=== PATIENT | male | born 1950 | race Caucasian/White ===

== ENCOUNTER 2020-11-07 07:37 | Day surgery (SDC) | payer MEDICARE ==
[2020-11-05 09:41] LABS: MICROSCOPIC NOT IND
[2020-11-05 09:51] LABS: ALANINE AMINOTRANSFERASE 21 U/L (12-78); ALBUMIN 3.7 g/dL (3.4-5.0); ALKALINE PHOSPHATASE 67 U/L (45-117); BILIRUBIN,TOTAL 0.7 mg/dL (0.2-1.0); CALCIUM 9.1 mg/dL (8.5-10.1); CREATININE 0.88 mg/dL (0.7-1.3); TOTAL PROTEIN 7.3 g/dL (6.4-8.2)
[2020-11-05 09:52] LABS: BASOPHILS % (AUTO) 1 % (0-1); EOSINOPHILS % (AUTO) 3 % (1-7); LYMPHOCYTES % (AUTO) 12 % (22-44); MEAN CORPUSCULAR HEMOGLOBIN 30.1 pg (27.5-34.5); MEAN CORPUSCULAR HGB CONC 34.4 g/dL (33.2-36.2); MEAN PLATELET VOLUME 7.5 fL (7.4-10.4); MONOCYTES % (AUTO) 8 % (2-9); NEUTROPHILS % (AUTO) 76 % (42-75); PLATELET COUNT 492 x10^3/uL (130-400); RED BLOOD COUNT 4.95 x10^6/uL (4.38-5.82); RED CELL DISTRIBUTION WIDTH 15.7 % (9.4-14.8)
[2020-11-05 10:21] LABS: ANION GAP 6 mmol/L (5-15); CHLORIDE 107 mmol/L (98-107)
[~2020-11-07] VITALS: Ht 170.2 cm; Wt 70.2 kg
[~2020-11-07 07:37] MED LIST: LISI-170 PO; MULT-449 PO; VITA1CAP PO; ZINC50TA44 PO
[2020-11-07 08:12] VITALS: BP 157/74
[2020-11-07] MEDS ORDERED: CHLORHEXIDINE 15 ML UDC PO ONE (08:30)
[2020-11-07] MEDS ORDERED: LACTATED RINGERS 1,000 ML IV SCH (08:30)
[2020-11-07] MEDS ORDERED: FENTANYL PF 250 MCG/5ML ONE (09:14)
[2020-11-07] MEDS ORDERED: DEXAMETHASONE 4 MG/ML, 1ML ONE (09:26)
[2020-11-07] MEDS ORDERED: ONDANSETRON 2MG/ML, 2ML ONE (09:26)
[2020-11-07] MEDS ORDERED: CEFAZOLIN 1,000 MG ONE (09:26)
[2020-11-07] MEDS ORDERED: PROPOFOL 10 MG/ML, 20ML ONE (09:26)
[2020-11-07] MEDS ORDERED: ACETAMINOPHEN 325 MG TABLET PO PRN (09:30)
[2020-11-07] MEDS ORDERED: hydrALAzine 20 MG/ML, 1ML IV PRN (09:30)
[2020-11-07] MEDS ORDERED: LABETALOL 5MG/ML, 20ML IV PRN (09:30)
[2020-11-07] MEDS ORDERED: FENTANYL PF 100 MCG/2ML IV PRN (09:30)
[2020-11-07] MEDS ORDERED: EPHEDRINE 50 MG/ML, 1ML IVPush PRN (09:30)
[2020-11-07] MEDS ORDERED: OXYcodone 5 MG/5 ML ORAL.SOL UDC PO PRN (09:30)
[2020-11-07] MEDS ORDERED: ONDANSETRON 2MG/ML, 2ML IVPush PRN (09:30)
[2020-11-07] MEDS ORDERED: METHOCARBAMOL 1,000 MG in DEXTROSE 5% 100 ML IV PRN (09:30)
[2020-11-07] MEDS ORDERED: PROMETHAZINE 25 MG/ML, 1ML IVPush PRN (09:30)
[2020-11-07] MEDS ORDERED: HYDROmorphone 1 MG/ML, 1ML INJ IVPush PRN (09:30)
[2020-11-07] MEDS ORDERED: LORazepam 2 MG/ML, 1ML IVPush PRN (09:30)
== END 2020-11-07 12:50 | disposition home or self-care (01) ==
LOC: OUT 07:37
PROVIDERS: ATTEND Urology
DX: N20.0 Calculus of kidney (principal); Z79.899 Other long term (current) drug therapy
CPT/HCPCS: 36415; 50590; 80053; 81003; 85025; 87086; 93005; J3010; J7120; J0690; J1100; J2405; J2704